=== PATIENT | male | born 1975 | race Caucasian/White ===

== ENCOUNTER 2017-01-15 11:34 | Emergency (ER) | payer OTHER ==
[~2017-01-15] VITALS: Ht 172.7 cm; Wt 76.0 kg
[2017-01-15 11:43] VITALS: BP 144/90; PULSE 84; RESP 16; TEMP 98.3; O2SAT 100
[2017-01-15] MEDS ORDERED: LIDOCAINE 1%/EPINEPHrine 1:100,000 SOLN 20 ML VIAL INFIL ONE ×2 (11:45→12:00)
[2017-01-15] MEDS ORDERED: TETANUS/DIPHTHERIA TOXOID ADULT 0.5 ML VIAL IM ONE (12:00)
[2017-01-15] MEDS ORDERED: LIDOCAINE 2%/EPINEPHrine 1:100,000 20ML MDV INFIL ONE (12:00)
--- NOTE | 2017-01-15 12:30 | PD ---
HPI Chief Complaint: Laceration/Skin Injury Time Seen by Provider: 11:53 Travel History International Travel<30 days: No Contact w/Intl Traveler<30days: No Traveled to known affect area: No History of Present Illness HPI This is a 41-year-old male who is here with a laceration to the left forearm dorsal aspect. Patient was using a circular saw when he accidentally cut the arm. Injury occurred prior to arrival. He reports normal sensation and full range of motion of the wrist and all digits. The bleeding is well-controlled. He reports mild pain at the site of the laceration. Tetanus immunization is unknown. No other injury. [facility] Past Medical History Medical History: Denies Significant Hx Tetanus Vaccination: > 5 Years Past Surgical History Surgical History: No Previous Surgery Social History Alcohol Use: No Tobacco Use: No Substance Use: No Allergies-Medications (Allergen,Severity, Reaction): Coded Allergies: No Known Allergies (Verified Allergy, Unknown, 01/15/17) Reported Meds & Prescriptions Reported Meds & Active Scripts Active No Active Prescriptions or Reported Medications Review of Systems Except as stated in HPI: all other systems reviewed are Neg Physical Exam Narrative GENERAL: Alert. Male in no distress. SKIN: Warm and dry. 4 cm laceration to the left forearm dorsal aspect. No tendon or vascular injury identified. No foreign body. HEAD: Normocephalic. EYES: No scleral icterus. No injection or drainage. NECK: Supple, trachea midline. No JVD or lymphadenopathy. CARDIOVASCULAR: Regular rate and rhythm without murmurs, gallops, or rubs. RESPIRATORY: Breath sounds equal bilaterally. No accessory muscle use. GASTROINTESTINAL: Abdomen soft, non-tender, nondistended. MUSCULOSKELETAL: No cyanosis, or edema. Left upper extremity: 4 cm laceration to the left forearm dorsal aspect. No tendon or vascular injury identified. No foreign body. Patient reports normal sensation distal to the laceration. He has full range of motion of the extremity. Plus distal pulses. Brisk cap refill. Data Data Last Documented VS Vital Signs Date Time Temp Pulse Resp B/P (MAP) Pulse Ox O2 Delivery O2 Flow Rate FiO2 01/15/17 11:43 98.3 84 16 144/90 (108) 100 Orders Orders Tetanus/Diphtheria Tox Adult (Tetanus/Di (01/15/17 12:00) Lidocai-Epi 2%-1:100,000 Inj (Xylocaine- (12/10/17 12:00) Ed Discharge Order (01/15/17 12:30) [place] Medical Decision Making Medical Screen Exam Complete: Yes Emergency Medical Condition: Yes Differential Diagnosis Laceration, tendon injury, ligament injury Narrative Course 41-year-old male here with a 4 cm laceration to the left forearm dorsal aspect. There is no tendon or vascular injury. The extremity is neurovascularly intact. Patient has full range of motion and normal sensation of the wrist and fingers. Laceration repair performed. Tetanus immunization updated. Procedures Procedure Narrative LACERATION LOCATION: Left upper extremity LENGTH: 4 cm NUMBER OF STITCHES/ROBINA: 6 REPAIR: The area of the laceration was prepped with Betadine and sterilely draped. The laceration was infiltrated with 1% lidocaine with epi. The wound was copiously irrigated and explored without evidence of foreign body, tendon injury or neurovascular injury. The wound was closed using 3-0 Ethilon. This was a single layer repair. A sterile dressing was applied. The patient was advised to keep the dressing clean and dry. Patient tolerated the procedure well. Diagnosis Primary Impression: Laceration of left upper extremity Qualified Codes: S41.112A - Laceration without foreign body of left upper arm , initial encounter Referrals: Primary Care Physician Additional Instructions: Sutures need to be removed in 7-10 days. Apply thin layer of antibiotic ointment to the area daily and apply dry dressing. Scripts No Active Prescriptions or Reported Meds Disposition: 01 DISCHARGE HOME Condition: Stable KumarCourtney MAURER Jan 15, 2017 12:30
== END 2017-01-15 12:52 | disposition home or self-care (01) ==
LOC: PHED 11:34 → PHEFT 12:52
DX: S51.812A Laceration without foreign body of left forearm, initial encounter (principal); W31.2XXA Contact with powered woodworking and forming machines, initial encounter; Y93.9 Activity, unspecified; Z23 Encounter for immunization
CPT/HCPCS: 12002; 90471; 90714